=== PATIENT | female | born 1945 | race Caucasian/White ===

== ENCOUNTER → 2016-08-26 | Outpatient (REF) ==
[~2016-08-26] MED LIST: ASPIR-LOW81 MG PO; ASPIRIN 81M81 MG/TA2 PO; ATORVASTATIN; CEPHALEXIN500 M1 PO; CIPRO 500MG TA500 MG PO; GLUCOPHAGE500 MG PO; HCTZ 25MG TAB25 MG PO; INDERAL80 MG PO; LASIX 40MG TABL40 MG PO; LEVAQUIN 750MG750 M1 PO; LEVOTHYROXINE0.1 MG PO; LEVOXYL0.075 MG PO; LIPITOR20 MG PO; LORTAB 7.5/5001 TAB PO; MINOCYCLINE100 MG PO; PREDNISONE1 MG PO; PRILOSEC 20MG20 MG PO; PYRIDIUM100 MG PO
== END ==
LOC: ZLAB.WCH 15:48
DX: Z01.89 Encounter for other specified special examinations (principal)

== ENCOUNTER → 2016-11-24 | Outpatient (REF) | LOC: ZLAB.WCH 11:06 | DX: Z01.89 Encounter for other specified special examinations (principal) ==

== ENCOUNTER → 2017-05-25 | Outpatient (REF) | LOC: ZLAB.WCH 14:32 | DX: Z01.89 Encounter for other specified special examinations (principal) ==

== ENCOUNTER → 2017-08-03 | Outpatient (REF) | LOC: ZLAB.WCH 14:26 | DX: Z01.89 Encounter for other specified special examinations (principal) ==

== ENCOUNTER → 2017-11-23 | Outpatient (REF) | LOC: ZLAB.WCH 16:01 | DX: Z01.89 Encounter for other specified special examinations (principal) ==

== ENCOUNTER → 2018-05-24 | Outpatient (REF) | LOC: ZLAB.WCH 16:25 | DX: Z01.89 Encounter for other specified special examinations (principal) ==

== ENCOUNTER → 2018-11-22 | Outpatient (REF) | LOC: ZLAB.WCH 16:14 | DX: Z01.89 Encounter for other specified special examinations (principal) ==